=== PATIENT | female | born 1965 ===

== ENCOUNTER 2021-06-07 05:44 | Emergency (ER) | payer OTHER ==
[2021-06-07] MEDS ORDERED: KETOROLAC 30 MG/ML INJ ONE (06:41)
[2021-06-07] MEDS ORDERED: HYDROCODONE/APAP 10/325 TAB ONE (06:41)
[2021-06-07] MEDS ORDERED: LIDOCAINE 4% PATCH ONE (06:42)
--- NOTE | 2021-06-07 08:00 | RAD REPORT ---
EXAM DESCRIPTION: RAD - Lumbar Spine 3 Views - 06/07/2021 7:23 am CLINICAL HISTORY: PAIN COMPARISON: No comparisons FINDINGS: No acute fracture. No malalignment. Disc height loss at L5-S1 which is mild. Surgical clip s in the right upper quadrant. IMPRESSION: No acute osseous abnormality involving the lumbar spine.
[2021-06-07] MEDS ORDERED: dexAMETHasone 10 MG/ML VIAL ONE (08:07)
--- NOTE | 2021-06-07 08:30 | ER ---
Nurse's Notes [facility] Name: Dafne Olvera Age: 56 yrs Sex: Female : 1965 Arrival Date: 06/07/2021 Time: 05:47 Bed 16 Private MD: Diagnosis: Lumbago with sciatica Presentation: 06/07 05:59 Chief complaint: Patient states: pt dx w sciatica in mar and has not improved. pt co mr2 numbness weakness and pain in lower back that radiates down left leg. Coronavirus screen: At this time, the client does not indicate any symptoms associated with coronavirus-19. Ebola Screen: No symptoms or risks identified at this time. Initial Sepsis Screen: Does the patient meet any 2 criteria? No. Patient's initial sepsis screen is negative. Does the patient have a suspected source of infection? No. Patient's initial sepsis screen is negative. Risk Assessment: Do you want to hurt yourself or someone else? Patient reports no desire to harm self or others. Onset of symptoms was March 12, 2021. 05:59 Method Of Arrival: Ambulatory mr2 05:59 Acuity: INESSA 3 mr2 Triage Assessment: 06:20 General: Appears in no apparent distress. slender, Behavior is calm, cooperative. Pain: mr2 Complains of pain in left low back and right low back Pain radiates to left leg. Musculoskeletal: Capillary refill is brisk. Historical: - Allergies: 06:24 No Known Allergies; mr2 - Home Meds: 06:24 albuterol sulfate 2.5 mg /3 mL (0.083 %) Nebulizer nebu [Active]; mr2 - PMHx: 06:24 Asthma; mr2 - Immunization history:: Adult Immunizations up to date. - Social history:: Smoking status: Patient reports the use of cigarette tobacco products, smokes one pack cigarettes per day. Screenin:24 Abuse screen: Denies threats or abuse. Denies injuries from another. Nutritional mr2 screening: No deficits noted. Tuberculosis screening: No symptoms or risk factors identified. Fall Risk None identified. Assessment: 06:22 Neuro: Reports numbness in left leg. mr2 07:10 General: Appears in no apparent distress. uncomfortable, Behavior is calm, cooperative. vg1 Pain: Complains of pain in back, right leg and left leg Pain currently is 4 out of 10 on a pain scale. Neuro: Level of Consciousness is awake, alert, obeys commands, Oriented to person, place, time, situation, Reports tingling in lower extremities . Cardiovascular: Patient's skin is warm and dry. Respiratory: Airway is patent Respiratory effort is even, unlabored. GI: No signs and/or symptoms were reported involving the gastrointestinal system. : No signs and/or symptoms were reported regarding the genitourinary system. EENT: No signs and/or symptoms were reported regarding the EENT system. Derm: Skin is intact, is healthy with good turgor. Musculoskeletal: Circulation, motion, and sensation intact. 09:07 Reassessment: Patient appears in no apparent distress at this time. Patient and/or vg1 family updated on plan of care and expected duration. Pain level reassessed. Patient is alert, oriented x 3, equal unlabored respirations, skin warm/dry/pink. Patient states feeling better. Vital Signs: 05:59 BP 134 / 89; Pulse 90; Resp 17; Temp 98.4; Pulse Ox 97% on R/A; Weight 61.23 kg; Height mr2 5 ft. 3 in. (160.02 cm); Pain 5/10; 07:30 BP 113 / 55; Pulse 82; Resp 18; Pulse Ox 96% on R/A; vg1 08:30 BP 115 / 64; Pulse 70; Resp 16; Pulse Ox 97% on R/A; vg1 05:59 Body Mass Index 23.91 (61.23 kg, 160.02 cm) mr2 ED Course: 05:47 Patient arrived in ED. bp1 05:59 Constantino Acevedo, [place] is Primary Nurse. mr2 06:05 Triage completed. mr2 06:05 Usama Skinner NP is PHCP. pm1 06:05 Munir Bailey MD is Attending Physician. pm1 06:22 Arm band placed on. mr2 06:24 Bed in low position. Call light in reach. Side rails up X2. Adult w/ patient. mr2 06:26 No provider procedures requiring assistance completed. mr2 07:21 Lumbar Spine (3 Views) XRAY In Process Unspecified. EDMS 09:09 Patient did not have IV access during this emergency room visit. vg1 Administered Medications: 06:50 Drug: Lidoderm Patch 5 % (700 mg/patch) 1 patches Route: Topical; Site: affected area; mr2 08:13 Follow up: Response: Marked relief of symptoms vg1 06:50 Drug: [place] (HYDROcodone-acetaminophen) 10 mg-325 mg 1 tabs Route: PO; mr2 08:13 Follow up: Response: No adverse reaction; Marked relief of symptoms vg1 06:50 Drug: Ketorolac 30 mg Route: IM; Site: left deltoid; mr2 08:13 Follow up: Response: No adverse reaction; Marked relief of symptoms vg1 08:13 Drug: Decadron (dexamethasone) 10 mg Route: IM; Site: left deltoid; vg1 09:07 Follow up: Response: No adverse reaction; Marked relief of symptoms vg1 Outcome: 08:28 Discharge ordered by . pm1 09:08 Discharged to home ambulatory, with family. vg1 09:08 Condition: stable 09:08 Discharge instructions given to patient, Instructed on discharge instructions, follow up and referral plans. medication usage, Demonstrated understanding of instructions, follow-up care, medications, Prescriptions given X 3. 09:09 Patient left the ED. vg1 Signatures: Dispatcher [employer] EDMS Usama Skinner NP PULLMAN CONDUCTOR pm1 Eugenia Lamb RN RN vg1 Soraida Cardenas Mike RN RN mr2
--- NOTE | 2021-06-07 08:30 | EDPHYS ---
Physician Documentation [facility] Name: Dafne Olvera Age: 56 yrs Sex: Female : 1965 Arrival Date: 06/07/2021 Time: 05:47 Bed 16 Private MD: ED Physician Munir Bailey HPI: 06/07 06:30 This 56 yrs old Female presents to ER via Ambulatory with complaints of Back Pain. pm1 06:30 The patient presents with pain. The symptoms are located in the low back. Onset: The pm1 symptoms/episode began/occurred Low back pain ongoing for many years that comes and goes, usually lasting for 2-3 days. Improved with visits to chiropractors however her back pain has been constant since March 2021. The pain radiates to the right leg and left leg, worse to right leg. Associated signs and symptoms: Pertinent positives: abdominal pain, tingling to outer aspect of thighs, Pertinent negatives: chest pain, dysuria, fever, incontinence. The problem was sustained history of osteoarthritis. Modifying factors: The patient symptoms are alleviated by nothing. Severity of symptoms: in the emergency department the symptoms are actually worse. Seen by a PCP and prescribed muscle relaxers and NSAID. No improvement and followed up and was then prescribed gabapentin. Patient reports no improvement with either treatment regimen. Patient denies any imaging from PCP and did not hear back from PCP staff for imaging. Patient has attempted to see pain management but has not seen any speciality because she requires a referral. Patient came to the ER hoping that she could get a MRI today. Historical: - Allergies: 06:24 No Known Allergies; mr2 - Home Meds: 06:24 albuterol sulfate 2.5 mg /3 mL (0.083 %) Nebulizer nebu [Active]; mr2 - PMHx: 06:24 Asthma; mr2 - Immunization history:: Adult Immunizations up to date. - Social history:: Smoking status: Patient reports the use of cigarette tobacco products, smokes one pack cigarettes per day. ROS: 06:30 Constitutional: Negative for fever, chills, and weight loss, Cardiovascular: Negative pm1 for chest pain, palpitations, and edema, Respiratory: Negative for shortness of breath, cough, wheezing, and pleuritic chest pain. 06:30 : Negative for injury, bleeding, discharge, and swelling, MS/Extremity: Negative for injury and deformity, Skin: Negative for injury, rash, and discoloration. 06:30 Abdomen/GI: Positive for of the right lower quadrant, Negative for nausea, vomiting, and diarrhea, constipation. 06:30 Back: Positive for of the low back area. 06:30 : Negative for urinary symptoms, burning with urination, difficulty urinating, bladder incontinence. 06:30 Neuro: Positive for tingling, of the Outer aspect of thighs, Negative for headache, weakness. 06:30 All other systems are negative. Exam: 06:30 Constitutional: This is a well developed, well nourished patient who is awake, alert, pm1 and in no acute distress. Head/Face: Normocephalic, atraumatic. 06:30 Skin: Warm, dry with normal turgor. Normal color with no rashes, no lesions, and no evidence of cellulitis. MS/ Extremity: Pulses equal, no cyanosis. Neurovascular intact. Full, normal range of motion. 06:30 Eyes: Exam is negative for acute changes, Periorbital structures: no acute changes, Extraocular movements: no acute changes. 06:30 ENT: Exam is negative for acute changes, Mouth: no acute changes, Lips: normal, moist, Oral mucosa: normal, pink and intact, moist. 06:30 Neck: Exam negative for acute changes, ROM/movement: no acute changes. 06:30 Cardiovascular: Exam negative for acute changes, Rate: normal, Rhythm: regular, Pulses: no pulse deficits are appreciated. 06:30 Respiratory: Exam negative for acute changes, respiratory distress, shortness of breath. 06:30 Abdomen/GI: Exam negative for acute changes, Inspection: abdomen appears normal, Palpation: abdomen is soft and non-tender, in all quadrants. 06:30 Back: vertebral tenderness, is appreciated at lumbar spine. 06:30 Neuro: Exam negative for acute changes, Orientation: is normal, Mentation: is normal, Motor: moves all fours, strength is 5/5 in all extremities, plantar and dorsiflexion 5/5 to both great toes. Vital Signs: 05:59 BP 134 / 89; Pulse 90; Resp 17; Temp 98.4; Pulse Ox 97% on R/A; Weight 61.23 kg; Height mr2 5 ft. 3 in. (160.02 cm); Pain 5/10; 07:30 BP 113 / 55; Pulse 82; Resp 18; Pulse Ox 96% on R/A; vg1 08:30 BP 115 / 64; Pulse 70; Resp 16; Pulse Ox 97% on R/A; vg1 05:59 Body Mass Index 23.91 (61.23 kg, 160.02 cm) mr2 MDM: 06:05 Patient medically screened. pm1 08:03 ED course: Patient's pain currently 5/10 and tingling sensation to thighs has resolved pm1 with medications given. 08:03 Data reviewed: vital signs. Data interpreted: Pulse oximetry: on room air is 96 %. pm1 Interpretation: normal. 08:03 Differential diagnosis: chronic back pain, Osteoarthritis ruptured disc, spinal injury, pm1 sprain, Ureterolithiasis vertebral fracture, muscle spasm, abdominal pain. 08:08 ED course: Patient with improvement in medications given. Portion of pain likely pm1 attributed to inflammation, will give steroid to improve pain level further. 08:28 Counseling: I had a detailed discussion with the patient and/or guardian regarding: the pm1 historical points, exam findings, and any diagnostic results supporting the discharge/admit diagnosis, radiology results, the need for outpatient follow up, for definitive care, a family practitioner, a neurosurgeon, a painting supervisor, to return to the emergency department if symptoms worsen or persist or if there are any questions or concerns that arise at home. 08:32 ED course: DERMATOLOGY PROCEDURAL PHYSICIAN aware reviewed. Last prescription 08/15/2019. pm1 08:32 ED course: Patient has lidoderm patches at home already. pm1 06/07 06:26 Order name: Lumbar Spine (3 Views) XRAY; Complete Time: 08:04 pm1 Administered Medications: 06:50 Drug: Lidoderm Patch 5 % (700 mg/patch) 1 patches Route: Topical; Site: affected area; mr2 08:13 Follow up: Response: Marked relief of symptoms vg1 06:50 Drug: [place] (HYDROcodone-acetaminophen) 10 mg-325 mg 1 tabs Route: PO; mr2 08:13 Follow up: Response: No adverse reaction; Marked relief of symptoms vg1 06:50 Drug: Ketorolac 30 mg Route: IM; Site: left deltoid; mr2 08:13 Follow up: Response: No adverse reaction; Marked relief of symptoms vg1 08:13 Drug: Decadron (dexamethasone) 10 mg Route: IM; Site: left deltoid; vg1 09:07 Follow up: Response: No adverse reaction; Marked relief of symptoms vg1 Disposition: 19:15 Co-signature as Attending Physician, Munir Bailey MD. 7 Disposition Summary: 06/07/21 08:28 Discharge Ordered Location: Home pm1 Problem: new pm1 Symptoms: have improved pm1 Condition: Stable pm1 Diagnosis - Lumbago with sciatica pm1 Followup: pm1 - With: Emergency Department - When: As needed - Reason: Worsening of condition Followup: pm1 - With: Private Physician - When: 2 - 3 days - Reason: Recheck today's complaints, Continuance of care, Re-evaluation by your physician Discharge Instructions: - Discharge Summary Sheet pm1 - Chronic Back Pain pm1 Forms: - Medication Reconciliation Form pm1 - Thank You Letter pm1 - Antibiotic Education pm1 - Prescription Opioid Use pm1 Prescriptions: - Diclofenac Sodium 75 mg Oral tablet,delayed release (DR/EC) - take 1 tablet by ORAL route 2 times per day As needed; 30 tablet; Refills: 0, pm1 Product Selection Permitted - Medrol ([place]) 4 mg Oral Tablets, Dose Pack - take 1 tablet by ORAL route as directed - follow package instructions; 1 pm1 packet; Refills: 0, Product Selection Permitted - acetaminophen-codeine 300-15 mg Oral tablet - take 2 tablet by ORAL route every 6 hours As needed as needed; 20 tablet; pm1 Refills: 0, Product Selection Permitted Signatures: Dispatcher [employer] Usama Curtis NP [employer]IVET [employer] MACHINE OPERATOR pm1 Eugenia Lamb RN RN vg1 Munir Bailey MD MD 7 Constantino Acevedo RN RN mr2
[2021-06-07 09:15] VITALS: TEMP 98.4
[2021-06-07 09:18] VITALS: BP 115/64; O2SAT 97
== END 2021-06-07 09:09 | disposition home or self-care (01) ==
LOC: ER 05:44
DX: M54.40 Lumbago with sciatica, unspecified side (principal); F17.210 Nicotine dependence, cigarettes, uncomplicated
CPT/HCPCS: 72100; 96372; 99283; J1100